=== PATIENT | male | born 1955 | race Caucasian/White ===

== ENCOUNTER → 2025-04-22 09:58 | Outpatient (REF) | payer OTHER, SELFPAY | LOC: MRI 09:58 | PROVIDERS: ATTENDING PHYSICIAN Otolaryngology; FAMILY PHYSICIAN Physician Assistant Medical | DX: H93.13 Tinnitus, bilateral (principal); H90.3 Sensorineural hearing loss, bilateral | CPT/HCPCS: 70553; A9575 ==